=== PATIENT | male | born 1955 | race Caucasian/White ===

== ENCOUNTER 2016-12-19 14:40 | Inpatient (IN) ==
[2016-12-19] MEDS ORDERED: NS 1,000 ML IV ONE (15:14)
[2016-12-19] MEDS ORDERED: SALINE FLUSH 10ml SYRINGE IVF PRN (15:14)
--- NOTE | 2016-12-19 15:29 | Emergency Department Report ---
Altered Mental Status HPI - General Chief Complaint: Altered Mental Status Stated Complaint: confusion Time Seen by Provider: 12/19/16 15:09 Source: patient, family Mode of arrival: ambulatory Limitations: altered mental status - History of Present Illness HPI narrative: 61yo man presented to the ER by EMS for AMS. Pt has not been feeling well for several days. Yesterday, pts GF found him in his bathroom, altered and nauseated. Pt spent most of yesterday vomiting. Today, he has continued nausea, but is not vomiting. Pt is altered; he is alert and does try to answer questions , but his answers do not pertain to the questions asked. Pt is articulate. MD complaint: altered mental status, confusion Onset (ago): day(s) (2) Timing confirmed by: spouse Severity: severe Consistency of symptoms: constant Associated symptoms: nausea/vomiting - Related Data Home Medications Medication Instructions Recorded Confirmed No known Home medications [No home 12/19/16 12/19/16 meds] Allergies Allergy/AdvReac Type Severity Reaction Status Date / Time No Known Allergies Allergy Verified 12/19/16 16:34 Review of Systems All systems: reviewed and negative except as stated Gastrointestinal: Reports: nausea, vomiting Neurological: Reports: headache, confusion PFSH Pt does not go to a doctor. Physical Exam - Limitations Limitations: altered mental status - General General appearance: alert, in no apparent distress, obese - Normal Exams: Head:: Normocephalic without trauma Eyes:: Pupils are PERRLA w/ EOMI, No scleral icterus, irritation, or foreign bodies noted ENMT:: No facial trauma, nasal exudates, pharyngeal erythema, or exudates are noted Neck:: Full range of motion, without adenopathy, JVD, bruits or thyromegaly Chest/Respirations:: Clear all epps, with good airflow, and symmetry bilaterally Cardiovascular:: Regular rate and rhythm, without murmur or gallop, Pulses 2+ all extremities, capillary refill, <2 seconds all extremities Abdomen:: Bowel sounds positive, soft, non-tender, non-distended, no hepatosplenomegaly, masses or bruits noted Lymphatic:: No lymphadenopathy, or lymphedema noted Musculoskeletal:: No tenderness, or deformity noted, good range of motion, all extremities Integumentary:: No rashes, hives, or bruising noted, hair and nails, without abnormality - Neurological Exam Neurological exam: Present: alert, CN II-XII intact. Absent: oriented X3 - Psychiatric Psychiatric exam: Present: agitated. Absent: normal affect, normal mood Course Course Narrative: CT head confirmed CVA. Hospitalist has agreed to admit locally. Discussed with pt and family. Pt and spouse voiced understanding of dx, prognosis, tx, and f/u need. - Consultations Consultation #1: Hospitalist: Time: 16:30 Vital Signs Temperature 97.7 F 12/19/16 14:40 Pulse Rate 87 12/19/16 14:40 Respiratory Rate 18 12/19/16 14:40 Blood Pressure 175/83 H 12/19/16 14:40 Pulse Oximetry 96 12/19/16 14:40 Temperature 97.7 F 12/19/16 14:40 Pulse Rate 87 12/19/16 14:40 Respiratory Rate 18 12/19/16 14:40 Blood Pressure 175/83 H 12/19/16 14:40 Pulse Oximetry 96 12/19/16 14:40 Altered Mental Status - Differential Diagnosis Likely: altered mental status, delirium, dementia, hypoglycemia, hyponatremia - Medical Records Attestation: I reviewed the patient's medical records. - Lab Data Attestation: I reviewed the patient's lab results. Result diagrams: 12/19/16 15:24 12/19/16 15:24 - Radiology Data Attestation: I reviewed the patient's radiology results. CT Head: Acute basilar infarct. CXR: Low volumes with atelectasis - ECG Data Tracing #1 I reviewed this ECG and interpreted as documented below: ECG initial impression date: 12/19/16 ECG initial impression time: 15:45 ECG normal with no acute: arrhythmias, ischemia, conduction abnormalities, chamber hypertrophy Disposition Clinical Impression: CVA (cerebral vascular accident) Qualifiers: CVA mechanism: thrombosis Precerebral and cerebral artery: unspecified cerebral artery Qualified Code(s): I63.30 - Cerebral infarction due to thrombosis of unspecified cerebral artery Condition: Improved Prescriptions: No Action No known Home medications [No home meds] 0 #0 misc Time of Disposition: 16:51 - Seen By: physician
[2016-12-19] MEDS ORDERED: ONDANSETRON 4 MG/2 ML INJECTION IVP ONE (15:31)
--- NOTE | 2016-12-19 16:14 | XRay Report ---
Indication: AMS Procedure: XR chest 2V: Encounter: Initial Comparison: None Technique: PA and lateral radiographs of the chest were obtained. Findings: Lungs and airways: Low lung volumes with associated basilar atelectasis. No other focal/confluent airspace consolidation. Normal pulmonary vasculature. Pleura: No pleural effusion or pneumothorax. Heart and mediastinum: The cardiomediastinal silhouette and great vessels are within normal limits. Osseous structures and soft tissues: No acute osseous abnormality is seen. Degenerative disc disease of the thoracic spine. Impression: Low lung volumes with associated basilar atelectasis. .
--- NOTE | 2016-12-19 16:18 | CT Scan Report ---
Indication: AMS Procedure: CT head/brain wo con: Encounter: Initial Comparison: None Technique: Axial CT images through the head were performed without contrast. Iterative Reconstruction dose reducing technique was utilized. FINDINGS: Focal hypodensity within the left basal ganglia/anterior limb. The normal yoon-white matter differentiation is otherwise maintained. No intra-axial or extra-axial mass or hemorrhage seen. No mass effect or midline shift. The ventricles and cerebral sulci are normal in size, shape, and configuration without evidence of hydrocephalus. The basilar cisterns are patent. No extracalvarial scalp swelling. No acute calvarial fracture. The visualized paranasal sinuses and mastoid air cells are well-aerated. The visualized orbits and globes appear normal. IMPRESSION: Focal hypodensity within the left basal ganglia/anterior limb of the internal capsule suggesting an acute to subacute (hours to days chronicity) ischemic infarction. MRI could be obtained for confirmation and/or further characterization of chronicity. .
--- NOTE | 2016-12-19 18:58 | History & Physical Report ---
History of Present Illness Date: 12/19/16 Chief complaint: tired HPI: Mr. León is 61-year-old male who presented to the emergency room due to altered mental status which proved to be global aphasia. History is largely obtained from the patient's and brother. Patient was in his usual state of health through early yesterday morning when he awoke about 4:30 with recurrent episodes of emesis. At that time his speech was normal and he was cognitively intact. The patient had multiple episodes of emesis throughout the day yesterday with some dark brown emesis followed by bilious emesis. By late afternoon the patient complained of headache his speech became abnormal. His reports that he simply didn't make any sense. He seemed to have generalized weakness and was stumbling but no focal weakness was noted. She describes the patient holding his arms up and across his chest with both fists clenched. Symptoms were attributed to dehydration and heat exposure the prior day but persisted this morning and he subsequently presented to the emergency room. Nausea and vomiting seemed to have subsided and he's had no diarrhea or fever that family has noted. The patient had no falls and has no known head injuries. On presentation to the emergency room the patient's blood pressure was elevated at 175/83. CT of the head revealed a acute/subacute left basal ganglia/internal capsule ischemic stroke and patient is now admitted. Given onset of symptoms yesterday patient was felt to be outside of TPA window. The patient provides relatively little history and speech is garbled most of the time. Review of Systems ROS unobtainable: other (expressive aphasia; family provide limited history noting the patient has chronic low back pain and spasms and takes occasional [id number] analgesics , has chronic anxiety disorder with claustrophobia. He's complained of no other symptoms in the recent past.) PFSH Hypertension Hyperlipidemia Surgical History: None Family History: Father within the past year although widely metastatic intra-abdominal cancer. Multiple family members have hypertension. - Social History Smoking status: Never smoker Substance use type: does not use Alcohol intake frequency: a few times a month Household members: spouse Current occupational status: retired (postal employee) Social history: No current physician. is the patient's alternate decision maker; full code. Medications Home Medications Medication Instructions Recorded Confirmed Type No known Home medications [No home 12/19/16 12/19/16 History meds] Allergies Allergy/AdvReac Type Severity Reaction Status Date / Time No Known Allergies Allergy Verified 12/19/16 16:34 Exam Vital Signs: Temp Pulse Resp BP Pulse Ox 97.7 F 68 20 176/95 H 91 12/19/16 14:40 12/19/16 17:55 12/19/16 16:45 12/19/16 16:30 12/19/16 16:45 EXAM: General-NAD, occasionally reaches for emesis basin but then drops it immediately , on room air HEENT-PERRL, EOMI without nystagmus, conjugate gaze, conjunctiva clear, sclera anicteric facial structures grossly symmetric-excessive facial hair, oropharynx clear, neck supple and without adenopathy Lungs-respirations nonlabored, good airflow, breath sounds clear Cardiac-regular rhythm, S1-S2, no murmur appreciated Abd-abdomen soft, nontender, no mass or organomegaly palpated, bowel sounds diminished Ext-without edema Skin-without rash or evidence of wounds MS-no acute synovitis Neuro-EOMI, facial structure symmetric, tongue midline, expressive/receptive aphasia present with nonsensical speech intermittently. Motor tone normal, patient is not consistently following commands but there is no drift of the upper extremities, left deltoid power normal, right deltoid easily broken and graded 4-/5, right triceps seems weak but effort may account for discrepancy with left, fiberglass roller symmetric but poor effort on the right-tense to ignore the right when both sides being stimulated together. Power in the lower extremities is symmetric and patient can raise and hold each leg off the bed against resistance. Plantar flexion/dorsiflexion present and grossly intact. Sensation intact to touch/cold 4 extremities. No tremors. Knee jerks diminished bilaterally, biceps jerks +2 left, +1 right. Psych-dull, minimally interactive Height: 1.85 m Weight: 134 kg Results - Labs CBC & Chem 7: 12/19/16 15:24 12/19/16 15:24 Labs: Liver enzymes unremarkable, troponin 0.045, TSH 0.51. INR 1.17, PTT 25.9 Urinalysis notable only for concentrated urine. Urine drug screen positive for marijuana, alcohol level nondetectable. - ECG Data Tracing #1 Normal sinus rhythm, no acute changes. - Imaging and Cardiology Chest x-ray Status: image reviewed by me (NAD) CT scan - head Status: image reviewed by me (no bleed, hypodense lesion in the left basal ganglia or anterior portion of the left internal capsule consistent with ischemic stroke of recent origin. Radiology indicated this is no more than a few days old.) Assessment and Plan Assessment and Plan: Global aphasia Right upper extremity weakness Acute/subacute ischemic stroke Nausea/vomiting Hypertension Hyperlipidemia, history of Generalized anxiety disorder Obesity-BMI 37.2 Patient is hospitalized with ischemic stroke with expressive/receptive aphasia. He follows commands intermittently and occasionally responds to questions in a coherent manner although most speech is nonsensical. Left basal ganglia stroke present at counts for upper extremity weakness but does not clearly explain aphasia. Further imaging by MRI will be needed. Permissive hypertension will be permitted and rationale for doing so explained to family. Aspirin will be initiated in conjunction with statin. Lipid studies will be obtained in the morning in conjunction with hemoglobin A1c , blood sugars will be monitored. MRI is being obtained, carotid Dopplers and echocardiogram scheduled. DVT prophylaxis has been initiated with SCDs and Lovenox. PT and speech therapy consults initiated. Antiemetics are available if recurrent GI symptoms occur and IV fluids initiated. Monitor for blood loss associated with recurrent emesis and described dark brown emesis. Patient will require coordination with outpatient provider at discharge for follow-up. Full code. Discussed with Dr. Salinas, x-ray/EKG reviewed by myself, laboratory data reviewed, multiple additional studies ordered. Sepsis Assessment - Evaluation Sepsis screening result: No Definite Risk - Focused Exam Vital Signs Pulse 12/19/16 17:55 68 Hospital Course Summary Disclaimer: The visit summary below is not to be considered part of the above Progress Note. Hospital Course: 12/19/16 19:45 Patient is hospitalized with ischemic stroke with expressive/receptive aphasia. He follows commands intermittently and occasionally responds to questions in a coherent manner although most speech is nonsensical. Left basal ganglia stroke present at counts for upper extremity weakness but does not clearly explain aphasia. Further imaging by MRI will be needed. Permissive hypertension will be permitted and rationale for doing so explained to family. Aspirin will be initiated in conjunction with statin. Lipid studies will be obtained in the morning in conjunction with hemoglobin A1c , blood sugars will be monitored. MRI is being obtained, carotid Dopplers and echocardiogram scheduled. DVT prophylaxis has been initiated with SCDs and Lovenox. PT and speech therapy consults initiated. Antiemetics are available if recurrent GI symptoms occur and IV fluids initiated. Patient will require coordination with outpatient provider at discharge for follow-up.
[2016-12-19] MEDS ORDERED: METOCLOPRAMIDE 10mg/2ml INJECTION IVP PRN (18:59)
[2016-12-19] MEDS ORDERED: ONDANSETRON 4 MG/2 ML INJECTION IVP PRN (18:59)
[2016-12-19] MEDS ORDERED: ASPIRIN 325 MG TABLET PO ONE (19:00)
[2016-12-19] MEDS: NS 1,000 ML IV SCH (19:41)
[2016-12-19] MEDS: PANTOPRAZOLE 40 MG INJECTION IVP SCH (21:04)
[2016-12-19] MEDS: ACETAMINOPHEN 325 MG TABLET PO PRN (21:06)
[2016-12-19] MEDS: ROSUVASTATIN 20 MG TABLET PO SCH (21:11)
[2016-12-20] MEDS: ACETAMINOPHEN 325 MG TABLET PO PRN (02:40)
[2016-12-20] MEDS: NS 1,000 ML IV SCH ×2 (06:01→17:02)
--- NOTE | 2016-12-20 08:58 | CT Scan Report ---
Indication: mental status change PROCEDURE: CT head/brain wo con: Encounter: Initial Comparison: December 19, 2016 Technique: Axial CT images through the head were performed without contrast. Iterative Reconstruction dose reducing technique was utilized. FINDINGS: Focal low-attenuation lesion in the left anterior limb internal capsule and caudate head area is stable in appearance. The ventricles are of normal size, shape, and contour for the patient's age. There are scattered areas of low attenuation in the white matter which most likely represent changes from chronic microvascular ischemia. The brainstem, cerebellum, and cerebral hemispheres otherwise have a normal morphology and CT attenuation. There is no evidence of midline displacement. No hemorrhage, mass effect, mass lesions, or edema is evident. The visualized portions of the skull base, midface, and calvarium demonstrate no abnormality. The paranasal sinuses are well aerated and free of significant disease. The tympanic and mastoid cavities appear normal. IMPRESSION: Stable head CT. There is a preliminary report by [facility]. .
[2016-12-20] MEDS: PANTOPRAZOLE 40 MG INJECTION IVP SCH (09:09)
[2016-12-20] MEDS: ASPIRIN 325 MG TABLET PO SCH (09:10)
[2016-12-20] MEDS: ENOXAPARIN 40 MG/0.4 ML INJECTION SQ SCH (09:10)
--- NOTE | 2016-12-20 13:01 | Magnetic Resonance Report ---
Indication: aphasia PROCEDURE: MR head/brain wo con: Encounter: Initial Comparisons: Head CT dated December 20, 2016 Technique: Multiplanar, multisequence, MR imaging of the head without contrast was acquired. FINDINGS: Exam is severely limited by motion artifact and borderline nondiagnostic. There are a couple small diffusion weighted hyperintensities in the left posterior limb of the internal capsule and one within the splenium of the corpus callosum suggesting tiny acute infarcts. The region of low attenuation on the comparison CT in the left basal ganglia, anterior limb of the internal capsule area does not show obvious acute diffusion restriction and may be due to an old lacunar infarct. There are scattered additional periventricular white matter hyperintensities probably related to microvascular ischemic disease. No gross acute intracranial hemorrhage. Ventricles are stable. No mass effect or midline shift. Impression: Borderline nondiagnostic exam due to severe motion artifact. Punctate areas of probable acute infarct involving the left mid frontal lobe and splenium of the corpus callosum. .
--- NOTE | 2016-12-20 20:07 | Progress Note ---
Subjective: Mr. Donohue was seen with multiple family members and friends at the bedside. He reported that he feels good today. His reported that his speech is better and he had occasional brief phrases that were fluent but at other times had significant word searching and became frustrated. He has not been hungry today but denied nausea or vomiting. Said some minor headache. reports scrotal edema is present. He's had no dyspnea and denied generalized pain. Objective Vital signs: Temp Pulse Resp BP Pulse Ox 97.2 F 75 20 155/100 H 94 12/20/16 15:00 12/20/16 17:00 12/20/16 15:00 12/20/16 15:00 12/20/16 15:00 I/O 2400/550 EXAM General-NAD, occasionally frustrated by difficulty with word searching/ expressive aphasia HEENT-facial structure symmetric, conjunctiva clear, EOMI, tongue midline Lungs-respirations nonlabored, good airflow, breath sounds clear Cardiac-regular rhythm, S1-S2, no murmur noted Abd-soft, nontender, bowel sounds present -scrotal edema present Ext-without peripheral edema Neuro-persistent weakness right deltoid and biceps; patient follows simple commands better today-able to hold both legs off the bed independently and against gentle resistance. Psych-frustrated at times, several intermittently, oriented to [facility] - Weight: 128.5 kg Results - Labs CBC & Chem 7: 12/20/16 04:39 12/20/16 04:39 Labs: Magnesium 2.0, phosphorus 2.6 Lipid studies pending - Imaging and Cardiology MRI - head Status: image reviewed by me (motion artifact, small acute stroke mid left frontal lobe and left corpus callosum; infarcts in the left basal ganglia and anterior internal capsule do not show acute diffusion per radiology and are likely somewhat older.) Assessment and Plan Assessment and Plan: Global aphasia Right upper extremity weakness Acute/subacute ischemic stroke Nausea/vomiting-resolved Hypertension Hyperlipidemia, history of Generalized anxiety disorder Obesity-BMI 37.2 Scrotal edema Several areas of small ischemic stroke present in the left hemisphere, some more acute than others but all likely relatively acute. Patient is been seen by both speech therapy and physical therapy-both services recommended rehabilitation. Swallow evaluation pending as patient was fatigued and had no appetite earlier when speech therapy present for evaluation. On aspirin, Crestor, Lovenox for DVT prophylaxis. Echocardiogram completed today; carotid Dopplers pending. May need CTA of neck/ head-we will wait 1-2 days to permit reimaging of head by CT given poor quality MRI due to motion artifact. With multiple small strokes may require TIFFANY-await standard echo report and reassess need for further imaging. Continue IV fluids, poor urine output-low volume Lasix to be given. Diastolic blood pressure modestly elevated, if persists with diuresis may require treatment although prefer permissive hypertension at this stage. Discussed with multiple family members, MRI reviewed by myself, discussed with case management, laboratory data reviewed. provide supplemental history. Sepsis Assessment - Evaluation Sepsis screening result: No Definite Risk - Focused Exam Vital Signs Temp Pulse Resp BP Pulse Ox 12/20/16 17:00 75 12/20/16 15:15 75 12/20/16 15:00 97.2 F 81 20 155/100 H 94 12/20/16 09:00 72 Capillary refill: < 2-3 Seconds Hospital Course Summary Disclaimer: The visit summary below is not to be considered part of the above Progress Note. Hospital Course: 12/19/16 19:45 Patient is hospitalized with ischemic stroke with expressive/receptive aphasia. He follows commands intermittently and occasionally responds to questions in a coherent manner although most speech is nonsensical. Left basal ganglia stroke present at counts for upper extremity weakness but does not clearly explain aphasia. Further imaging by MRI will be needed. Permissive hypertension will be permitted and rationale for doing so explained to family. Aspirin will be initiated in conjunction with statin. Lipid studies will be obtained in the morning in conjunction with hemoglobin A1c , blood sugars will be monitored. MRI is being obtained, carotid Dopplers and echocardiogram scheduled. DVT prophylaxis has been initiated with SCDs and Lovenox. PT and speech therapy consults initiated. Antiemetics are available if recurrent GI symptoms occur and IV fluids initiated. Patient will require coordination with outpatient provider at discharge for follow-up. 12/20/16 20:20 Several areas of small ischemic stroke present in the left hemisphere, some more acute than others but all likely relatively acute. Patient is been seen by both speech therapy and physical therapy-both services recommended rehabilitation. Swallow evaluation pending as patient was fatigued and had no appetite earlier when speech therapy present for evaluation. On aspirin, Crestor, Lovenox for DVT prophylaxis. Echocardiogram completed today; carotid Dopplers pending. May need CTA of neck/ head-we will wait 1-2 days to permit reimaging of head by CT given poor quality MRI due to motion artifact. With multiple small strokes may require TIFFANY-await standard echo report and reassess need for further imaging. Continue IV fluids, poor urine output-low volume Lasix to be given. Diastolic blood pressure modestly elevated, if persists with diuresis may require treatment although prefer permissive hypertension at this stage.
[2016-12-20] MEDS ORDERED: FUROSEMIDE 20 MG/2 ML INJECTION IVP ONE (20:08)
[2016-12-20] MEDS: ROSUVASTATIN 20 MG TABLET PO SCH (21:10)
[2016-12-21] MEDS: ACETAMINOPHEN 325 MG TABLET PO PRN (02:02)
[2016-12-21] MEDS: NS 1,000 ML IV SCH ×2 (03:23→19:31)
[2016-12-21] MEDS: ENOXAPARIN 40 MG/0.4 ML INJECTION SQ SCH (09:07)
[2016-12-21] MEDS: PANTOPRAZOLE 40 MG INJECTION IVP SCH (09:07)
[2016-12-21] MEDS: ASPIRIN 325 MG TABLET PO SCH (09:07)
--- NOTE | 2016-12-21 11:02 | Ultrasound Report ---
Indication: left hemisphere/basal ganglia stroke PROCEDURE: US carotid doppler BI: TECHNIQUE: Grayscale, color and duplex Doppler imaging was performed of the carotid systems bilaterally. Velocities in cm/sec - validated velocity measurements with angiographic measurements, velocity criteria are extrapolated from diameter data as defined by the Society of Radiologists in Ultrasound Consensus Conference Radiology 2003; 229;340-346. RIGHT: PSV ICA 45.6 EDV ICA 14.5 PSV CCA 58.5 EDV CCA 13.4 PSV ECA 40.5 ICA Diameter reduction of less than 10% LEFT: PSV ICA 58.9 EDV ICA 22 PSV CCA 54.2 EDV CCA 17.7 PSV ECA 73.5 ICA Diameter reduction of less than 10% The right vertebral artery is patent with cephalic flow. The left vertebral artery is patent with cephalic flow. IMPRESSION: No significant atherosclerotic plaque. No hemodynamically significant carotid stenosis. .
[2016-12-21] MEDS: LIDOCAINE 1% 2ml INJ 10 MG, POTASSIUM CHLORIDE INJ 10 MEQ in NS 100 ML IV SCH ×4 (11:07→15:05)
[2016-12-21] MEDS: AMLODIPINE 5 MG TABLET PO SCH (16:37)
--- NOTE | 2016-12-21 16:39 | Echocardiogram ---
DATE OF PROCEDURE December 20, 2016 REFERRING PHYSICIAN Lorri Beaver MD This is a two-dimensional echo with spectral Doppler, color-flow and M-mode. It was obtained in a patient with altered mental status. Left atrial dimension is normal. Left ventricle end-diastolic dimension is normal. Left ventricle wall thickness is normal. LV systolic function is normal with ejection fraction of 61%. Right atrium is normal. Right ventricle is normal. Aortic root dimension is normal. Mitral annulus is calcified. Mitral valve leaflets are normal with trace of mitral regurgitation. Aortic valve shows mild fibrocalcific changes with no stenosis or insufficiency. Tricuspid valve shows trace of tricuspid regurgitation with estimated pulmonary systolic pressure of 8. Pulmonary valve shows no pulmonary insufficiency. There is no pericardial effusion. IMPRESSION 1. Normal LV systolic function with ejection fraction of 61%. 2. Mitral annulus calcification with trace of mitral regurgitation. 3. Aortic sclerosis. 4. Trace of tricuspid regurgitation with low pulmonary pressure with estimated pulmonary artery systolic pressure of 8. MTDD
--- NOTE | 2016-12-21 19:15 | Progress Note ---
Subjective: Mr. León was seated on the edge of the bed when seen. He was able to answer questions and follow commands with less difficulty today although still stumbles over words frequently and occasionally becomes frustrated with word searching. Diet was advanced and he reported that he had a ham sandwich for lunch. He denies pain, nausea, palpitations, lightheadedness, or dyspnea. He denies weakness in his left arm and was able to tell me that he previously took Lotrel for his blood pressure. He feels that his speech is better. Objective Vital signs: Temp Pulse Resp BP Pulse Ox 97.7 F 79 16 181/109 H 94 12/21/16 15:56 12/21/16 15:56 12/21/16 15:56 12/21/16 15:56 12/21/16 15:56 EXAM General-NAD, alert, residual expressive aphasia but significantly improved from yesterday HEENT-EOMI, conjunctiva clear, oropharynx clear Lungs-respirations nonlabored with good airflow, breath sounds clear Cardiac-regular rhythm, S1-S2 Abd-soft, nontender, without palpable mass, bowel sounds present Ext-without edema -persistent scrotal edema Neuro-moving all extremities well, normal motor tone, right biceps, triceps, deltoid power all normal today, rapid alternating movements bilateral hands normal today Psych-slightly frustrated intermittently but otherwise pleasant and cooperative - Weight: 125.1 kg Results - Labs CBC & Chem 7: 12/20/16 04:39 12/21/16 04:28 Labs: Lipids pending - Imaging and Cardiology carotid Doppler Status: image reviewed by me (less than 10% stenosis bilaterally, cephalic flow in the vertebrals bilaterally.) echocardiogram Additional comments: Preliminary report indicates ejection fraction of 61% with normal atrial/ ventricular size and LV thickness. Trace mitral regurgitation. PAP 8. No pericardial effusion. Assessment and Plan Assessment and Plan: Global aphasia Right upper extremity weakness Acute/subacute ischemic stroke Nausea/vomiting-resolved Hypertension Hyperlipidemia, history of Generalized anxiety disorder Obesity-BMI 37.2 Scrotal edema Clearly improving, power in the right upper extremity has normalized and speech is improving. Following commands well today but still has some minor expressive aphasia and word searching. Continue aspirin/statin. Lipids pending. Blood pressure remains elevated-amlodipine initiated to be getting gradually lowering blood pressure. Continue PT/speech therapy-initially anticipated rehabilitation however given improvement seems unlikely that will be needed. CTA head scheduled for tomorrow to further define cause of stroke-multiple small events subacute/acute. Will additionally schedule TIFFANY since carotids unremarkable. Will discuss with patient and . Discussed with Dr. Omer. Carotid Doppler reviewed by myself, echo report reviewed, laboratory data reviewed, CTA ordered, discussed with speech therapy/nursing/family. Sepsis Assessment - Evaluation Sepsis screening result: No Definite Risk - Focused Exam Vital Signs Temp Pulse Resp BP Pulse Ox 12/21/16 15:56 97.7 F 79 16 181/109 H 94 12/21/16 09:08 162/95 H 12/21/16 07:47 97.8 F 75 183/104 H 95 Capillary refill: < 2-3 Seconds Hospital Course Summary Disclaimer: The visit summary below is not to be considered part of the above Progress Note. Hospital Course: 12/19/16 19:45 Patient is hospitalized with ischemic stroke with expressive/receptive aphasia. He follows commands intermittently and occasionally responds to questions in a coherent manner although most speech is nonsensical. Left basal ganglia stroke present at counts for upper extremity weakness but does not clearly explain aphasia. Further imaging by MRI will be needed. Permissive hypertension will be permitted and rationale for doing so explained to family. Aspirin will be initiated in conjunction with statin. Lipid studies will be obtained in the morning in conjunction with hemoglobin A1c , blood sugars will be monitored. MRI is being obtained, carotid Dopplers and echocardiogram scheduled. DVT prophylaxis has been initiated with SCDs and Lovenox. PT and speech therapy consults initiated. Antiemetics are available if recurrent GI symptoms occur and IV fluids initiated. Patient will require coordination with outpatient provider at discharge for follow-up. 12/20/16 20:20 Several areas of small ischemic stroke present in the left hemisphere, some more acute than others but all likely relatively acute. Patient is been seen by both speech therapy and physical therapy-both services recommended rehabilitation. Swallow evaluation pending as patient was fatigued and had no appetite earlier when speech therapy present for evaluation. On aspirin, Crestor, Lovenox for DVT prophylaxis. Echocardiogram completed today; carotid Dopplers pending. May need CTA of neck/ head-we will wait 1-2 days to permit reimaging of head by CT given poor quality MRI due to motion artifact. With multiple small strokes may require TIFFANY-await standard echo report and reassess need for further imaging. Continue IV fluids, poor urine output-low volume Lasix to be given. Diastolic blood pressure modestly elevated, if persists with diuresis may require treatment although prefer permissive hypertension at this stage. 12/21/16 19:25 Clearly improving, power in the right upper extremity has normalized and speech is improving. Following commands well today but still has some minor expressive aphasia and word searching. Continue aspirin/statin. Lipids pending. Blood pressure remains elevated-amlodipine initiated to be getting gradually lowering blood pressure. Continue PT/speech therapy-initially anticipated rehabilitation however given improvement seems unlikely that will be needed. CTA head scheduled for tomorrow to further define cause of stroke-multiple small events subacute/acute. Will additionally schedule TIFFANY since carotids unremarkable. Will discuss with patient and . Discussed with Dr. Omer. 12/21/16 19:27
[2016-12-21] MEDS: ROSUVASTATIN 20 MG TABLET PO SCH (21:47)
[2016-12-22] MEDS ORDERED: SALINE FLUSH 10ml SYRINGE ONE ×2 (07:34→08:11)
[2016-12-22] MEDS ORDERED: IOHEXOL 350mg/ml 75ml INJECTION ONE (07:34)
[2016-12-22] MEDS ORDERED: NS 100 ML ONE (07:34)
[2016-12-22] MEDS: ASPIRIN 325 MG TABLET PO SCH (10:23)
[2016-12-22] MEDS: AMLODIPINE 5 MG TABLET PO SCH (10:23)
[2016-12-22] MEDS: PANTOPRAZOLE 40 MG INJECTION IVP SCH (10:24)
[2016-12-22] MEDS: ENOXAPARIN 40 MG/0.4 ML INJECTION SQ SCH (10:24)
--- NOTE | 2016-12-22 10:43 | CT Scan Report ---
Indication: CVA-several small L hemisphere PROCEDURE: CT angio head: Encounter: Initial Comparison: Brain MRI dated December 20, [address] dated December 20, 2016 Technique: Axial CT angiography through the entire head was performed with and without contrast. Coronal and sagittal two-dimensional reconstructed images were created and reviewed. Three-dimensional volume [place] was produced by the technologist on a dedicated workstation and reviewed. Contrast: Omnipaque 350 69mL Automated Exposure Control and Iterative Reconstruction dose reducing techniques were utilized. Findings: CT head with and without contrast: Noncontrast images show no acute intracranial hemorrhage. No acute territorial stroke. The small areas of infarct seen by MRI are not apparent by CT. There is an old lacunar infarct in the left anterior limb of the internal capsule and caudate region which is unchanged. Ventricles are stable. No midline shift. No calvarial fracture. Paranasal sinuses are clear. CTA head: Contrast bolus is suboptimal. The initial scan was early in the second scan was delayed more in the venous phase limiting evaluation of the intracranial arteries. There is no evidence of arterial occlusion or aneurysm. Impression: 1. No acute intracranial hemorrhage. The tiny areas of infarct seen by MRI are not apparent by CT. 2. Somewhat suboptimal CT angiography of the head without evidence of aneurysm or occlusion .
[2016-12-22] MEDS ORDERED: LISINOPRIL 10 MG TABLET PO SCH (11:30)
[2016-12-22] MEDS ORDERED: MIDAZOLAM 2mg/2ml INJECTION IVP ONE (11:54)
[2016-12-22] MEDS ORDERED: FentaNYL 100 MCG/2 ML INJECTION IVP ONE (11:54)
[2016-12-22] MEDS ORDERED: SALINE FLUSH 10ml SYRINGE IV ONE (11:54)
--- NOTE | 2016-12-22 16:15 | Discharge Summary ---
Discharge Plan - [facility] Rec/Dispo [place] Instructions: Ischemic Stroke (DC), Aphasia (GEN), Expressive Aphasia Exercises (GEN) Prescriptions: New Amlodipine [Norvasc] 5 mg PO DAILY #30 Aspirin [ASA] 325 mg PO DAILY Lisinopril [Prinivil] 10 mg PO DAILY #30 Atorvastatin [Lipitor] 1 tab PO HS #30 tab - Disposition 01 Discharged Home, Self-Care
--- NOTE | 2016-12-22 16:35 | Transesophageal Echocardiogram ---
DATE OF SERVICE 12/22/2016 INDICATION Strokes. Patient has longstanding hypertension and noncompliance. He stopped all medications six years ago. He presented with a stroke and [employer] imaging showing evidence of multiple ischemic strokes. I was asked to perform a transesophageal echocardiogram by Dr. Beaver. I asked the patient's permission. He gave consent. He understood the indications, alternatives, risks, and benefits. He denies any dysphagia. PREMEDICATION IV Versed 4 mg IV, fentanyl 50 mcg. Cetacaine spray to the oropharynx. DESCRIPTION OF PROCEDURE After adequate levels of sedation was obtained, I advanced the OmniProbe to stomach. Transgastric, low and mid transesophageal images of adequate quality were obtained. The procedure was well tolerated. There were no immediate complications. FINDINGS 1. CARDIAC CHAMBERS: All cardiac chambers are normal in size. Left atrium is not enlarged. 2. LEFT VENTRICLE: Wall thickness appears grossly normal. Wall motion analysis is normal. Systolic function is normal. EF of 60%. 3. VALVES: Aortic valve is trileaflet. It exhibits very mild sclerosis. Normal valve opening. Mitral and tricuspid valve structure and motion appear normal. Normal valve excursion. 4. DOPPLER: Doppler shows trivial mitral and tricuspid regurgitation. No demonstrable shunts on color flow Doppler. No criteria for hypermobility of the interatrial septum. Bubble study, however, showed an instance in the small passage of a few bubbles from the right atrium to the left atrium, which occurred spontaneously and immediately. No other demonstrable shunts on color flow Doppler. 5. No pericardial effusion. No intracardiac masses, thrombi, vegetations, or shunts. The left atrial appendage was examined carefully with multiple branches. It exhibits normal size and no demonstrable clots or smoke sign. Normal flow velocity in the appendage. 6. Visualized portion of the thoracic aorta exhibits only mild scattered intimal thickening without any evidence of dissection, aortic aneurysm, or mobile atheroma. IMPRESSION 1. Evidence of a tiny hole on bubble study that spontaneously passed from the right atrium to the left atrium. 2. No demonstrable intracardiac masses, thrombi, or vegetations. 3. Normal LV size and contractility. 4. No significant valvular dysfunction. MTDD
--- NOTE | 2016-12-22 21:20 | Discharge Summary ---
Discharge Information Date of admission: 12/19/16 17:49 Anticipated date of discharge: 12/22/16 Attending Physician: Lorri Beaver MD Consults: - Discharge Diagnosis (1) CVA (cerebral vascular accident) Qualifiers: CVA mechanism: thrombosis Precerebral and cerebral artery: unspecified cerebral artery Qualified Code(s): I63.30 - Cerebral infarction due to thrombosis of unspecified cerebral artery Status: Acute - Procedures Procedures: Transthoracic echocardiogram on 12/20/16: Left atrial dimension is normal. Left ventricle end-diastolic dimension is normal. Left ventricle wall thickness is normal. LV systolic function is normal with ejection fraction of 61%. Right atrium is normal. Right ventricle is normal. Aortic root dimension is normal. Mitral annulus is calcified. Mitral valve leaflets are normal with trace of mitral regurgitation. Aortic valve shows mild fibrocalcific changes with no stenosis or insufficiency. Tricuspid valve shows trace of tricuspid regurgitation with estimated pulmonary systolic pressure of 8. Pulmonary valve shows no pulmonary insufficiency. There is no pericardial effusion. IMPRESSION 1. Normal LV systolic function with ejection fraction of 61%. 2. Mitral annulus calcification with trace of mitral regurgitation. 3. Aortic sclerosis. 4. Trace of tricuspid regurgitation with low pulmonary pressure with estimated pulmonary artery systolic pressure of 8. Transesophageal echocardiogram on 12/22/16: 1. CARDIAC CHAMBERS: All cardiac chambers are normal in size. Left atrium is not enlarged. 2. LEFT VENTRICLE: Wall thickness appears grossly normal. Wall motion analysis is normal. Systolic function is normal. EF of 60%. 3. VALVES: Aortic valve is trileaflet. It exhibits very mild sclerosis. Normal valve opening. Mitral and tricuspid valve structure and motion appear normal. Normal valve excursion. 4. DOPPLER: Doppler shows trivial mitral and tricuspid regurgitation. No demonstrable shunts on color flow Doppler. No criteria for hypermobility of the interatrial septum. Bubble study, however, showed an instance in the small passage of a few bubbles from the right atrium to the left atrium, which occurred spontaneously and immediately. No other demonstrable shunts on color flow Doppler. 5. No pericardial effusion. No intracardiac masses, thrombi, vegetations, or shunts. The left atrial appendage was examined carefully with multiple branches. It exhibits normal size and no demonstrable clots or smoke sign. Normal flow velocity in the appendage. 6. Visualized portion of the thoracic aorta exhibits only mild scattered intimal thickening without any evidence of dissection, aortic aneurysm, or mobile atheroma. IMPRESSION 1. Evidence of a tiny hole on bubble study that spontaneously passed from the right atrium to the left atrium. 2. No demonstrable intracardiac masses, thrombi, or vegetations. 3. Normal LV size and contractility. 4. No significant valvular dysfunction. - Laboratory Labs: CBC and chemistries on admission were unremarkable other than minor elevation of CPK at 299. INR 1.17 Total cholesterol 157, LDL 77.8, HDL 32.2, triglycerides 161 TSH 0.51, A1c 5.4 12/20/16 04:39 12/22/16 04:30 - Radiology Radiology: Chest x-ray on admission revealed low lung volumes with associated bibasilar atelectasis. Noncontrast CT of the head on admission: Focal hypodensity within the left basal ganglia/anterior limb. The normal yoon-white matter differentiation is otherwise maintained. No intra-axial or extra-axial mass or hemorrhage seen. No mass effect or midline shift. The ventricles and cerebral sulci are normal in size, shape, and configuration without evidence of hydrocephalus. The basilar cisterns are patent. No extracalvarial scalp swelling. No acute calvarial fracture. The visualized paranasal sinuses and mastoid air cells are well-aerated. The visualized orbits and globes appear normal. IMPRESSION: Focal hypodensity within the left basal ganglia/anterior limb of the internal capsule suggesting an acute to subacute (hours to days chronicity) ischemic infarction. MRI could be obtained for confirmation and/or further characterization of chronicity. Repeat CT head on 12/20/16: Focal low-attenuation lesion in the left anterior limb internal capsule and caudate head area is stable in appearance. The ventricles are of normal size, shape, and contour for the patient's age. There are scattered areas of low attenuation in the white matter which most likely represent changes from chronic microvascular ischemia. The brainstem, cerebellum, and cerebral hemispheres otherwise have a normal morphology and CT attenuation. There is no evidence of midline displacement. No hemorrhage, mass effect, mass lesions, or edema is evident. The visualized portions of the skull base, midface, and calvarium demonstrate no abnormality. The paranasal sinuses are well aerated and free of significant disease. The tympanic and mastoid cavities appear normal. IMPRESSION: Stable head CT. MRI of the brain without contrast on 12/20/16: Exam was limited by motion artifactI. There were a couple of small hyperintense areas of signal in the left posterior limb of the internal capsule and the splenium of the corpus callosum suggestive of tiny acute infarcts. The region of low- attenuation on the comparison CT in the left basal ganglia, anterior limb of the internal capsule did not show acute diffusion restriction and was felt to be more consistent with old lacunar infarction. Scattered areas of periventricular white matter hyper intensities probably related to microvascular ischemic disease. Impression: Borderline nondiagnostic exam due to severe motion artifact. Punctate areas of probable acute infarct involving the left mid frontal lobe and splenium of the corpus callosum. Carotid Doppler on 12/21/16: RIGHT: PSV ICA 45.6 EDV ICA 14.5 PSV CCA 58.5 EDV CCA 13.4 PSV ECA 40.5 ICA Diameter reduction of less than 10% LEFT: PSV ICA 58.9 EDV ICA 22 PSV CCA 54.2 EDV CCA 17.7 PSV ECA 73.5 ICA Diameter reduction of less than 10% The right vertebral artery is patent with cephalic flow. The left vertebral artery is patent with cephalic flow. IMPRESSION: No significant atherosclerotic plaque. No hemodynamically significant carotid stenosis. CT angiogram of the head/brain on 12/22/16: CT head with and without contrast: Noncontrast images show no acute intracranial hemorrhage. No acute territorial stroke. The small areas of infarct seen by MRI are not apparent by CT. There is an old lacunar infarct in the left anterior limb of the internal capsule and caudate region which is unchanged. Ventricles are stable. No midline shift. No calvarial fracture. Paranasal sinuses are clear. CTA head: Contrast bolus is suboptimal. The initial scan was early in the second scan was delayed more in the venous phase limiting evaluation of the intracranial arteries. There is no evidence of arterial occlusion or aneurysm. Impression: 1. No acute intracranial hemorrhage. The tiny areas of infarct seen by MRI are not apparent by CT. 2. Somewhat suboptimal CT angiography of the head without evidence of aneurysm or occlusion History of Present Illness HPI: Mr. León is 61-year-old male who presented to the emergency room due to altered mental status which proved to be global aphasia. History is largely obtained from the patient's and brother. Patient was in his usual state of health through early yesterday morning when he awoke about 4:30 with recurrent episodes of emesis. At that time his speech was normal and he was cognitively intact. The patient had multiple episodes of emesis throughout the day yesterday with some dark brown emesis followed by bilious emesis. By late afternoon the patient complained of headache his speech became abnormal. His reports that he simply didn't make any sense. He seemed to have generalized weakness and was stumbling but no focal weakness was noted. She describes the patient holding his arms up and across his chest with both fists clenched. Symptoms were attributed to dehydration and heat exposure the prior day but persisted this morning and he subsequently presented to the emergency room. Nausea and vomiting seemed to have subsided and he's had no diarrhea or fever that family has noted. The patient had no falls and has no known head injuries. On presentation to the emergency room the patient's blood pressure was elevated at 175/83. CT of the head revealed a acute/subacute left basal ganglia/internal capsule ischemic stroke and patient is now admitted. Given onset of symptoms yesterday patient was felt to be outside of TPA window. The patient provides relatively little history and speech is garbled most of the time. Hospital Course Hospital course: Acute/subacute ischemic stroke Global aphasia Right upper extremity weakness-resolved Nausea/vomiting-resolved Hypertension Hyperlipidemia, history of Patent foramen ovale by TIFFANY Generalized anxiety disorder Obesity-BMI 37.2 Scrotal edema Mr. León was hospitalized with ischemic stroke with expressive/receptive aphasia. He followed commands intermittently and occasionally responds to questions in a coherent manner although most speech is nonsensical on admission. Aspirin was started on admission and continued throughout the hospitalization and at discharge. The patient was started on Crestor for control of lipids on admission. Lipid studies later returned with minimal elevation in triglycerides and LDL. He was converted to atorvastatin prior to discharge. Permissive hypertension was permitted initially with addition of amlodipine on the third hospital day and low-dose lisinopril prior to discharge. PT/OT/speech therapy worked with the patient throughout the hospitalization. There was minor weakness in the right upper extremity on admission which resolved within 48 hours. The patient had significant expressive and receptive aphasia on admission which improved progressively through the hospitalization with minimal word searching persisting at discharge. Outpatient therapies are recommended and prescriptions provided prior to discharge. Evaluation to determine cause of stroke included carotid Dopplers, echocardiogram, TIFFANY, and CTA of the head. A small patent foramen ovale was identified but thought to be clinically insignificant. Risk factor modification with blood pressure control, weight management, and lipid lowering therapy or advised. Continuation of an antiplatelet agent was stressed. Patient was felt stable for discharge on 12/22. He had no complaints at this time other than some residual scrotal edema. He was walking well and denied chest pain or palpitations. Patient was alert and fully oriented. Extraocular movements are intact without nystagmus. Respirations nonlabored in cardiac rhythm regular. Upper extremity power was symmetric and strong proximally and distally, rapid alternating movements in the fingers were symmetric and the patient had no difficulty following commands to complete the tasks. Minimal word searching was evident and he spoke in sentences today. Stable for discharge home with outpatient therapy to be continued. The patient needs to establish with a primary care physician in the immediate future and was given names of a number of physicians in [facility]. >30 minutes spent on patient care and discharge care coordination today on the date of discharge. -- Discharge Plan - Med Rec/Dispo [place] Instructions: Aphasia (GEN), Expressive Aphasia Exercises (GEN), Ischemic Stroke (DC) Prescriptions: New Amlodipine [Norvasc] 5 mg PO DAILY #30 Aspirin [ASA] 325 mg PO DAILY Lisinopril [Prinivil] 10 mg PO DAILY #30 Atorvastatin [Lipitor] 1 tab PO HS #30 tab - Disposition 01 Discharged Home, Self-Care
== END 2016-12-22 17:00 | disposition home or self-care (01) | DRG 65 ==
LOC: ED 14:40 → MED 16:49 → ED 17:15 → MED 17:49
PROVIDERS: ADMIT Internal Medicine; ATTEND Internal Medicine